=== PATIENT | male | born 1955 | race Caucasian/White ===

== ENCOUNTER 2021-01-29 10:28 | Emergency (ER) | payer MEDICARE, MEDICAID, SELFPAY ==
--- NOTE | ~2021-01-29 | CT_ITS ---
EXAMINATION: CT BRAIN AND CHEST X-RAY. CLINICAL INFORMATION: AMS. COMPARISON: Chest 10/24/2018. CT brain 05/17/2016 TECHNIQUE: 5 mm thin axial and reformatted 2 mm thin sagittal and coronal images of brain were obtained. DLP 618. Chest x-ray one view. FINDINGS: Brain: There is no acute intra-axial, extra-axial bleed, masses or midline shift. There is no acute infarction in evolution. There is no edema. The lateral ventricles are symmetrical in size and configuration without enlargement. There is diffuse periventricular hypodensity in both cerebral hemispheres suggestive of chronic small vessel microangiopathy. Bone windows reveal no calvarial abnormality. Bilateral paranasal sinuses and mastoid air cells are well-aerated. 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 Chest x-ray: The lungs are well-expanded and clear of acute process. The heart size and pulmonary vascularity is normal. No gross bony abnormality seen. CT/CT head/brain wo con IMPRESSION: No acute intracranial process seen. Moderate cerebral volume loss with chronic small vessel microangiopathy. There is no acute cardiopulmonary process.
[2021-01-29 10:39] VITALS: BP 130/79; PULSE 64; RESP 16; TEMP 36.7; O2SAT 95; BMI 19.0
--- NOTE | 2021-01-29 10:39 | ECG_ITS ---
Test Reason : ALTER MENTAL Blood Pressure : / mmHG Vent. Rate : 058 BPM Atrial Rate : 058 BPM P-R Int : 140 ms QRS Dur : 080 ms QT Int : 440 ms P-R-T Axes : 073 044 007 degrees QTc Int : 431 ms Sinus bradycardia Left ventricular hypertrophy Abnormal ECG When compared with ECG of 23-OCT-2018 23:56, Vent. rate has decreased BY 43 BPM T wave inversion no longer evident in Lateral leads Referred By: Marichuy Morales Electronically Signed By:Macho Andersen
--- NOTE | 2021-01-29 10:40 | ED_ITS ---
HPI - Altered Mental Status General Chief Complaint: Altered Mental Status Stated Complaint: ams, increased weakness, slurred speech Time Seen by Provider: 01/29/21 10:38 Source: patient and EMS Mode of arrival: EMS Limitations: other (dementia with cognitive impairment) History of Present Illness HPI narrative: 65 [facility] with dementia, CVA, hearing loss reportedly RN told EMS he might be more confused since last night and his speech seems slurred, no other history provided, EMS found the patient smiling in his room eating M+Ms, RN in ED who takes care of Isidoro states he is at his baseline and his speech is slurred at baseline MD complaint: other (?more confused, slurred speech) Onset (ago): day(s) (?last night) Timing confirmed by: caregiver Severity: similar to previous episodes Consistency of symptoms: unknown Context: other (hx of hearing loss, stroke, dementia, baseline slurred speech) Associated symptoms: denies other symptoms Related Data Allergies Allergy/AdvReac Type Severity Reaction Status Date / Time No Known Allergies Allergy Unverified 04/23/20 18:03 [No Known Allergies*] Review of Systems Review of Systems: ROS unable to be obtained due to cognitive impairment PMFSH Past Medical History Source: nursing notes reviewed Medical History CVA (cerebral vascular accident) Dementia Dysphagia Hearing loss Social History Social History (Updated 01/29/21 @ 10:49 by Marichuy Morales DO) Housing: [facility] Patient Tobacco Use Status: Tobacco use Unknown Advance Directives: Yes Advance Directives Information Provided: Yes Advance Directives on File: No Physical Exam Vital Signs: Vital Signs: Last Vital Signs Temp 98.0 F 01/29/21 10:39 Pulse 64 01/29/21 10:39 Resp 16 01/29/21 10:39 BP 130/79 01/29/21 10:39 Pulse Ox 95 01/29/21 10:39 Body Mass Index 19.0 Appearance: Alert. Follows commands, unable to answer orientation questions. No acute distress. Eyes: Pupils equal, round and reactive to light. ENT: Pharynx normal. Neck: Normal inspection. Neck supple. CVS: Normal heart rate and rhythm. Pulses normal. Respiratory: No respiratory distress. Breath sounds normal. Abdomen: Soft and non-tender. Skin: Skin warm and dry. Normal skin color. Normal skin turgor. Extremities: No lower extremity edema. No calf ttp Neuro: Follows command smiles, slurred speech and mumbles No motor deficit. No sensory deficit. Course Course Course Narrative: after discussion [facility] - slurred speech at baseline, he has a mild UTI, EKG no ischemia, no CP, trop no sig rise - will give ceftriaxone and DC back with ceftin MDM - Altered Mental Status MDM Narrative Medical decision making narrative: 65 [facility] with dementia, CVA, hearing loss reportedly RN told EMS he might be more confused since last night and his speech seems slurred, no other history provided, EMS found the patient smiling in his room eating M+Ms, RN in ED who takes care of Isidoro states he is at his baseline and his speech is slurred at baseline at this time will obtain labs, CXR, UA for infection, CT head for mass/ICH though RN present in our ED states Isidoro is at his baseline, will call [facility] for more information Lab Data Result diagrams: 01/29/21 11:04 01/29/21 11:41 Labs: Lab Results 01/29/21 01/29/21 01/29/21 Range/Units 10:35 10:38 11:04 WBC 7.4 (4.8-10.8) X10*3/uL RBC 3.87 L (4.60-5.80) X10*6/uL Hgb 12.4 L (14.0-18.0) g/dl Hct 38.2 L (42-52) % MCV 98.7 H (80-98) fL MCH 32.0 (27.0-33.0) pg MCHC 32.5 (31.0-36.0) g/dl RDW 12.9 (11.0-16.0) % Plt Count 260 (160-400) X10*3/uL MPV 9.9 (9.4-12.4) fL Immature Gran % (Auto) 0.3 (0.0-0.4) % Neut % (Auto) 51.3 (45-73) % Lymph % (Auto) 31.1 (20-40) % [place] % (Auto) 6.4 (2-11) % Eos % (Auto) 9.5 H (0-4) % Baso % (Auto) 1.4 (0-2) % Lymph # (Auto) 2.3 (1.2-4.9) X10*3/uL [place] # (Auto) 0.5 (0.1-1.2) X10*3/uL Eos # (Auto) 0.7 H (0.0-0.4) X10*3/uL Baso # (Auto) 0.1 (0.0-0.2) X10*3/uL Abs Immat Gran (auto) 0.02 (0.00-0.03) X10*3/uL Absolute Neuts (auto) 3.8 (2.0-8.3) X10*3/uL Absolute Nucleated RBC 0.000 (0.0-0.012) X10*3/uL Nucleated RBC % (auto) 0.0 (0.0-0.2) /100WBC Whole Blood PT 12.3 (11.1-13.5) sec Whole Blood INR 1.0 (0.9-1.1) VBG pH (7.32-7.43) VBG pCO2 mmHg VBG pO2 mmHg VBG HCO3 (22-26) mmol/L VBG O2 Saturation % VBG Base Excess mmol/L Sodium (135-145) mmol/L Potassium (3.3-5.1) mmol/L Chloride (96-108) mmol/L Carbon Dioxide (22-29) mmol/L Anion Gap (12-20) BUN (9-16) mg/dL Creatinine (0.5-1.4) mg/dL Estim Creat Clear Calc Estimated GFR POC Glucose 112 (60-115) mg/dL Random Glucose (60-115) mg/dL Calcium (8.4-10.2) mg/dL Magnesium (1.6-2.6) mg/dL Total Bilirubin (0.0-1.0) mg/dL Direct Bilirubin (0.0-0.5) mg/dL AST (5-37) U/L ALT (0-40) U/L Alkaline Phosphatase (39-117) U/L Ammonia (13-55) umol/L Troponin I High Sens (<3.5-35.0) ng/L Total Protein (6.5-8.0) g/dL Albumin (3.5-5.0) g/dL Lipase (8-78) U/L Urine Color Urine Appearance Urine pH (5.0-8.0) Ur Specific [place] (1.005-1.025) Urine Protein (NEG-TRACE) MG/DL Urine Glucose (UA) (NEG) MG/DL Urine Ketones (NEG) MG/DL Urine Blood (NEG) Urine Nitrite (NEG) Ur Leukocyte Esterase (NEG) Urine RBC (0) /HPF Urine WBC (0-4) /HPF Ur Squamous Epith Cells /LPF Urine Bacteria /LPF 01/29/21 01/29/21 01/29/21 Range/Units 11:04 11:13 11:41 WBC (4.8-10.8) X10*3/uL RBC (4.60-5.80) X10*6/uL Hgb (14.0-18.0) g/dl Hct (42-52) % MCV (80-98) fL MCH (27.0-33.0) pg MCHC (31.0-36.0) g/dl RDW (11.0-16.0) % Plt Count (160-400) X10*3/uL MPV (9.4-12.4) fL Immature Gran % (Auto) (0.0-0.4) % Neut % (Auto) (45-73) % Lymph % (Auto) (20-40) % [place] % (Auto) (2-11) % Eos % (Auto) (0-4) % Baso % (Auto) (0-2) % Lymph # (Auto) (1.2-4.9) X10*3/uL [place] # (Auto) (0.1-1.2) X10*3/uL Eos # (Auto) (0.0-0.4) X10*3/uL Baso # (Auto) (0.0-0.2) X10*3/uL Abs Immat Gran (auto) (0.00-0.03) X10*3/uL Absolute Neuts (auto) (2.0-8.3) X10*3/uL Absolute Nucleated RBC (0.0-0.012) X10*3/uL Nucleated RBC % (auto) (0.0-0.2) /100WBC Whole Blood PT (11.1-13.5) sec Whole Blood INR (0.9-1.1) VBG pH 7.39 (7.32-7.43) VBG pCO2 44 mmHg VBG pO2 56 mmHg VBG HCO3 27 H (22-26) mmol/L VBG O2 Saturation 83.0 % VBG Base Excess 2.2 mmol/L Sodium 144 (135-145) mmol/L Potassium 4.2 (3.3-5.1) mmol/L Chloride 109 H (96-108) mmol/L Carbon Dioxide 29 (22-29) mmol/L Anion Gap 10 L (12-20) BUN 12 (9-16) mg/dL Creatinine 0.62 (0.5-1.4) mg/dL Estim Creat Clear Calc 84.7 Estimated GFR > 60 POC Glucose (60-115) mg/dL Random Glucose 106 (60-115) mg/dL Calcium 9.2 (8.4-10.2) mg/dL Magnesium 2.0 (1.6-2.6) mg/dL Total Bilirubin 0.5 (0.0-1.0) mg/dL Direct Bilirubin 0.2 (0.0-0.5) mg/dL AST 22 (5-37) U/L ALT 16 (0-40) U/L Alkaline Phosphatase 106 (39-117) U/L Ammonia (13-55) umol/L Troponin I High Sens 13.6 (<3.5-35.0) ng/L Total Protein 6.2 L (6.5-8.0) g/dL Albumin 3.6 (3.5-5.0) g/dL Lipase 9 (8-78) U/L Urine Color Urine Appearance Urine pH (5.0-8.0) Ur Specific [place] (1.005-1.025) Urine Protein (NEG-TRACE) MG/DL Urine Glucose (UA) (NEG) MG/DL Urine Ketones (NEG) MG/DL Urine Blood (NEG) Urine Nitrite (NEG) Ur Leukocyte Esterase (NEG) Urine RBC (0) /HPF Urine WBC (0-4) /HPF Ur Squamous Epith Cells /LPF Urine Bacteria /LPF 01/29/21 01/29/21 Range/Units 11:41 11:56 WBC (4.8-10.8) X10*3/uL RBC (4.60-5.80) X10*6/uL Hgb (14.0-18.0) g/dl Hct (42-52) % MCV (80-98) fL MCH (27.0-33.0) pg MCHC (31.0-36.0) g/dl RDW (11.0-16.0) % Plt Count (160-400) X10*3/uL MPV (9.4-12.4) fL Immature Gran % (Auto) (0.0-0.4) % Neut % (Auto) (45-73) % Lymph % (Auto) (20-40) % [place] % (Auto) (2-11) % Eos % (Auto) (0-4) % Baso % (Auto) (0-2) % Lymph # (Auto) (1.2-4.9) X10*3/uL [place] # (Auto) (0.1-1.2) X10*3/uL Eos # (Auto) (0.0-0.4) X10*3/uL Baso # (Auto) (0.0-0.2) X10*3/uL Abs Immat Gran (auto) (0.00-0.03) X10*3/uL Absolute Neuts (auto) (2.0-8.3) X10*3/uL Absolute Nucleated RBC (0.0-0.012) X10*3/uL Nucleated RBC % (auto) (0.0-0.2) /100WBC Whole Blood PT (11.1-13.5) sec Whole Blood INR (0.9-1.1) VBG pH (7.32-7.43) VBG pCO2 mmHg VBG pO2 mmHg VBG HCO3 (22-26) mmol/L VBG O2 Saturation % VBG Base Excess mmol/L Sodium (135-145) mmol/L Potassium (3.3-5.1) mmol/L Chloride (96-108) mmol/L Carbon Dioxide (22-29) mmol/L Anion Gap (12-20) BUN (9-16) mg/dL Creatinine (0.5-1.4) mg/dL Estim Creat Clear Calc Estimated GFR POC Glucose (60-115) mg/dL Random Glucose (60-115) mg/dL Calcium (8.4-10.2) mg/dL Magnesium (1.6-2.6) mg/dL Total Bilirubin (0.0-1.0) mg/dL Direct Bilirubin (0.0-0.5) mg/dL AST (5-37) U/L ALT (0-40) U/L Alkaline Phosphatase (39-117) U/L Ammonia 54 (13-55) umol/L Troponin I High Sens (<3.5-35.0) ng/L Total Protein (6.5-8.0) g/dL Albumin (3.5-5.0) g/dL Lipase (8-78) U/L Urine Color YELLOW Urine Appearance HAZY Urine pH 6.0 (5.0-8.0) Ur Specific [place] 1.010 (1.005-1.025) Urine Protein NEG (NEG-TRACE) MG/DL Urine Glucose (UA) NEG (NEG) MG/DL Urine Ketones NEG (NEG) MG/DL Urine Blood NEG (NEG) Urine Nitrite NEG (NEG) Ur Leukocyte Esterase TRACE H (NEG) Urine RBC 0 (0) /HPF Urine WBC 1-4 (0-4) /HPF Ur Squamous Epith Cells NONE /LPF Urine Bacteria 3+ /LPF ECG Data ECG #1: Attestation: I personally reviewed and interpreted this ECG as follows: ECG interpretation date: 01/29/21 ECG interpretation time: 11:30 Interpretation: Rate: 58 Rhythm: sinus bradycardia [place]: normal LVH Normal P waves. Normal RACHELLE. Normal QRS complex. ST T wave : nonspecific, no MICHAEL qTC: normal prior studies: no acute ischemia The study has been interpreted contemporaneously by me. . Discharge Plan Discharge Clinical Impression: Acute UTI, Weakness Patient Disposition: Xfer SNF Instructions: Urinary Tract Infection in Men (ED), Weakness (ED) Additional Instructions: return to ED for any worsening symptoms or concerns CONTINUE CEFTIN 250MG BID FOR 6 MORE DAYS, GIVEN ROCEPHIN IN ED ON 01/29/21
[2021-01-29 10:46] LABS: Glucose, Whole Blood 112 mg/dL (60-115)
[2021-01-29 11:09] LABS: Prothrombin Time Whole Bld POC 12.3 sec (11.1-13.5)
[2021-01-29 11:16] LABS: MANUAL DIFF FLAG NO
[2021-01-29 11:20] LABS: VBG Base Excess 2.2 mmol/L; VBG HCO3 27 mmol/L (22-26); VBG pCO2 44 mmHg; VBG pH 7.39 (7.32-7.43); VBG pO2 56 mmHg
[2021-01-29 11:24] LABS: Venous Blood Gas Refer to POC result
[2021-01-29 11:28] LABS: Basophils Absolute Auto 0.1 X10*3/uL (0.0-0.2); Basophils Percent Auto 1.4 % (0-2); Eosinophils Absolute Auto 0.7 X10*3/uL (0.0-0.4); Eosinophils Percent Auto 9.5 % (0-4); Hematocrit 38.2 % (42-52); Hemoglobin 12.4 g/dl (14.0-18.0); Imm Gran Abs Auto 0.02 X10*3/uL (0.00-0.03); Imm Gran Pct Auto 0.3 % (0.0-0.4); Lymphocytes Absolute Auto 2.3 X10*3/uL (1.2-4.9); Lymphocytes Percent Auto 31.1 % (20-40); Mean Corpuscular HGB Conc 32.5 g/dl (31.0-36.0); Mean Corpuscular Volume 98.7 fL (80-98); Mean Platelet Volume 9.9 fL (9.4-12.4); Monocytes Absolute Auto 0.5 X10*3/uL (0.1-1.2); Monocytes Percent Auto 6.4 % (2-11); Neutrophils Absolute Auto 3.8 X10*3/uL (2.0-8.3); Neutrophils Percent Auto 51.3 % (45-73); Platelet Count 260 X10*3/uL (160-400); Red Blood Count 3.87 X10*6/uL (4.60-5.80); Red Cell Distribution Width 12.9 % (11.0-16.0); White Blood Count 7.4 X10*3/uL (4.8-10.8)
--- NOTE | 2021-01-29 11:29 | PC.NURSE ---
Pt alert, unable to answer oriented questions, follows commands. Per EMS RN at [facility] reports pt is more confused and speech slurred, however unsure of when this started. This junior underwriter is familiar with pt and his responses are slower than baseline. Pt is hard of hearing, his speech is also gargled. He is a everyday smoker. Pt cooperative with txs, No apparent distress, iv line established, labs drawn, results pending. Urine obtained via straight cath. Large reddened area noted on L hip while changing pt into [facility].
[2021-01-29 11:53] LABS: Troponin-I High Sensitivity 13.6 ng/L (<3.5-35.0)
[2021-01-29 12:03] LABS: Glucose Urine UA NEG (NEG); Leukocyte Esterase Urine TRACE (NEG); Nitrite Urine NEG (NEG); UACC Culture Trigger YES; Urine Blood NEG (NEG); Urine Ketones NEG (NEG); Urine Protein NEG (NEG-TRACE)
[2021-01-29 12:04] LABS: Appearance Urine HAZY; Color Urine YELLOW
[2021-01-29 12:15] LABS: Bacteria Urine 3+ /LPF; RBC Urine 0 /HPF (0)
[2021-01-29 12:25] LABS: Alanine Aminotransferase 16 U/L (0-40); Albumin Level 3.6 g/dL (3.5-5.0); Alkaline Phosphatase 106 U/L (39-117); Aspartate Amino Transferase 22 U/L (5-37); Bilirubin Direct 0.2 mg/dL (0.0-0.5); Bilirubin Total 0.5 mg/dL (0.0-1.0); Blood Urea Nitrogen 12 mg/dL (9-16); Calcium 9.2 mg/dL (8.4-10.2); Creatinine Clr Calc Pharmacy 84.7; Estimated Glomerular Filt Rate > 60; Glucose Random 106 mg/dL (60-115); Lipase 9 U/L (8-78); Total Protein 6.2 g/dL (6.5-8.0)
[2021-01-29 12:27] LABS: Ammonia 54 umol/L (13-55)
[2021-01-29 12:33] LABS: Anion Gap 10 (12-20); Carbon Dioxide 29 mmol/L (22-29); Chloride 109 mmol/L (96-108); Potassium 4.2 mmol/L (3.3-5.1); Sodium 144 mmol/L (135-145)
[2021-01-29 12:43] LABS: TSH reflex Free T4 1.33 uIU/mL (0.32-4.0)
[2021-01-29] MEDS: cefTRIAXone sodium 1 GM in 0.9 % Sodium Chloride 50 ML IV (13:20)
[2021-01-29 13:34] VITALS: BP 165/58; PULSE 62; RESP 12; O2SAT 98
--- NOTE | 2021-01-29 13:36 | PC.NURSE ---
Pt resting quietly, no apparent distress. Plan of care is to d/c pt back to [facility]. This designer/writer will contact the facility to give report.
--- NOTE | 2021-01-29 14:10 | PC.NURSE ---
report given to Manjula Wells, Retail Attendant at [facility].
== END 2021-01-29 14:11 | disposition skilled nursing facility (03) ==
PROVIDERS: Emergency Provider Emergency Medicine
DX: N39.0 Urinary tract infection, site not specified (principal); R53.1 Weakness; F03.90 Unspecified dementia, unspecified severity, without behavioral disturbance, psychotic disturbance, mood disturbance, and anxiety; Z86.73 Personal history of transient ischemic attack (TIA), and cerebral infarction without residual deficits
CPT/HCPCS: 36415; 70450; 71045; 80048; 80076; 81001; 81003; 82140; 82947; 83690; 83735; 84443; 84484; 85025; 85610; 87086; 87088; 87186; 93005; 96365; 99284; 99285; J0696

== ENCOUNTER → 2022-02-21 14:47 | Outpatient (BNVA) | payer MEDICARE, MEDICAID, SELFPAY | PROVIDERS: PCP Hospitalist | DX: R33.9 Retention of urine, unspecified (principal) | CPT/HCPCS: 51798; 99202 ==

== ENCOUNTER 2022-05-12 00:49 | Emergency (ER) | payer MEDICARE, MEDICAID, SELFPAY ==
--- NOTE | ~2022-05-12 | CT_ITS ---
EXAMINATION: NONCONTRAST HEAD CT NONCONTRAST CERVICAL SPINE CT INDICATION INFORMATION: Fall with pain COMPARISON: 01/29/2021 TECHNIQUE: Separate noncontrast CT examinations of the head and cervical spine were performed. Coronal head CT images and coronal and sagittal cervical spine images were created at the technologist workstation. DLP: 959 mGy-cm DOSE LOWERING TECHNIQUES: This CT examination was performed using dose optimization techniques as appropriate, variously including the following: - Automated exposure control - Adjustment of mA and/or kV according to patient size (this includes techniques or standardized protocols for targeted exams were dose is matched to indication/reason for exam; i.e. extremities or head) - Use of iterative reconstruction technique FINDINGS: Head: Limited assessment due to motion artifact. There is a round region of acute hemorrhage in the left thalamus measuring 1.3 cm in diameter with minimal surrounding edema and mass effect. There is no evidence of acute territorial infarction. No abnormal mass-effect or midline shift is seen. Richards to white matter differentiation is well preserved. No extra-axial fluid collections are identified. The ventricles are normal in size. There is moderate periventricular white matter hypoattenuation consistent with chronic small vessel ischemic disease. Moderate volume loss is noted. The osseous structures and soft tissues are normal. Opacified left maxillary sinus. Cervical spine: Significantly limited assessment due to motion artifact. There is degenerative change at the atlantodens articulation. There is anatomic alignment of the vertebral bodies and posterior elements. Vertebral body heights are maintained. There is disc space narrowing throughout the cervical spine with associated endplate osteophytes. Moderate right-sided facet arthropathy. No evidence of acute fracture. No prevertebral soft tissue swelling. Visualized portions of the lung apices demonstrate emphysema. The thyroid gland is not adequately assessed due to motion artifact. CT/CT cervical spine wo IV con IMPRESSION: 1. Acute hemorrhage in the left thalamus measuring 1.3 cm, with mild associated edema. 2. Significantly limited assessment of the cervical spine due to motion artifact. Degenerative changes without definite acute findings. This critical result was discussed with Dr. Foster on 05/12/2022 4:29 AM, and it was ascertained that the content and urgency of the report was understood at the time of direct communication.
--- NOTE | 2022-05-12 01:14 | ECG_ITS ---
Test Reason : TACHYCARDIA Blood Pressure : / mmHG Vent. Rate : 133 BPM Atrial Rate : 000 BPM P-R Int : 000 ms QRS Dur : 092 ms QT Int : 324 ms P-R-T Axes : 000 057 122 degrees QTc Int : 482 ms Atrial fibrillation with rapid ventricular response Minimal voltage criteria for LVH, may be normal variant ( Sokolow-Lopes ) Nonspecific ST and T wave abnormality Abnormal ECG When compared with ECG of 29-JAN-2021 11:28, Atrial fibrillation has replaced Sinus rhythm Vent. rate has increased BY [address] now depressed in Lateral leads Nonspecific T wave abnormality no longer evident in Inferior leads Referred By: Andrew Ashby Electronically Signed By:VIOLA TELLO
[2022-05-12 01:25] LABS: Basophils Absolute Auto 0.1 X10*3/uL (0.0-0.2); Basophils Percent Auto 0.7 % (0-2); Eosinophils Absolute Auto 0.2 X10*3/uL (0.0-0.4); Eosinophils Percent Auto 1.4 % (0-4); Hematocrit 34.6 % (42.0-52.0); Hemoglobin 11.8 g/dl (14.0-18.0); Imm Gran Abs Auto 0.04 X10*3/uL (0.00-0.03); Imm Gran Pct Auto 0.3 % (0.0-0.4); Lymphocytes Absolute Auto 2.8 X10*3/uL (1.2-4.9); Lymphocytes Percent Auto 20.8 % (20-40); MANUAL DIFF FLAG NO; Mean Corpuscular HGB Conc 34.1 g/dl (31.0-36.0); Mean Corpuscular Hemoglobin 32.1 pg (27.0-33.0); Mean Platelet Volume 9.7 fL (9.4-12.4); Monocytes Absolute Auto 0.8 X10*3/uL (0.1-1.2); Monocytes Percent Auto 6.2 % (2-11); Neutrophils Absolute Auto 9.4 x10*3/uL (2.0-8.3); Neutrophils Percent Auto 70.6 % (45-73); Platelet Count 421 X10*3/uL (160-400); Red Blood Count 3.68 X10*6/uL (4.60-5.80); Red Cell Distribution Width 11.9 % (11.0-16.0); White Blood Count 13.3 X10*3/uL (4.8-10.8)
[2022-05-12] MEDS: 0.9 % Sodium Chloride 1,000 ML 999 ML IV ×2 (01:27→01:49)
--- NOTE | 2022-05-12 01:28 | ED.AMS ---
HPI - Altered Mental Status General Chief Complaint: Fall Stated Complaint: Fever Time Seen by Provider: 05/12/22 01:11 Source: EMS and RN notes reviewed Mode of arrival: EMS Limitations: altered mental status History of Present Illness HPI narrative: Patient is 66 years old with dementia, CVA, hearing loss came from halfway for increased confusion noted to have fever of 101.3 was found on the floor lying to the left side according to staff patient did not hit his head but was a unwitnessed fall. vitals checked for blood pressure 158/78 pulse rate 126 temperature 101.3 degrees pulse ox of 89% on arrival patient was very agitated tachycardic and heart rate around 200 irregularly irregular MD complaint: altered mental status and confusion Timing confirmed by: caregiver Severity: moderate Context: history of similar presentation and recent fever Related Data Home Medications Medication Instructions Recorded Confirmed aripiprazole 2 mg tablet 2 mg PO DAILY 02/21/22 carbamazepine 400 mg 400 mg PO BID 02/21/22 tablet,extended release,12 hr levothyroxine 75 mcg tablet 75 mcg PO DAILY 02/21/22 lisinopril 5 mg tablet 5 mg PO DAILY 02/21/22 metoprolol succinate 25 mg 25 mg PO BID 02/21/22 tablet,extended release 24 hr mirtazapine 7.5 mg tablet 7.5 mg PO BEDTIME 02/21/22 Previous Rx's Medication Instructions Recorded tamsulosin 0.4 mg capsule 0.4 mg PO BEDTIME #90 caps 02/21/22 Allergies Allergy/AdvReac Type Severity Reaction Status Date / Time No Known Allergies Allergy Verified 02/21/22 14:52 [No Known Allergies*] Review of Systems Review of Systems: Yes Unobtainable due to mental status PMFSH Past Medical History Medical History CVA (cerebral vascular accident) Dementia Dysphagia Hearing loss Retention of urine Social History Social History Housing: Long-Term Patient Tobacco Use Status: Tobacco use Unknown Advance Directives: No Physical Exam ED Vital Signs: Vital Signs - 24 hr 05/12/22 01:39 05/12/22 02:24 05/12/22 03:14 Temperature 102.4 F H 100.7 F H Pulse Rate 214 H 112 H 121 H Respiratory Rate 36 H 27 H 24 H Blood Pressure 117/91 H 100/64 108/58 L Pulse Oximetry 93 91 L 94 Oxygen Delivery Method Room Air Nasal Cannula Nasal Cannula Oxygen Flow Rate 4 4 05/12/22 03:46 05/12/22 04:17 Temperature 100.7 F H Pulse Rate 92 79 Respiratory Rate 20 19 Blood Pressure 114/78 106/66 Pulse Oximetry 97 Oxygen Delivery Method Nasal Cannula Oxygen Flow Rate 4 BMI result Body Mass Index 6.1 Appearance: Lethargic combative moving extremities all over Eyes: PERRLA, No Nystagmus ENT: Pharynx normal. Oral Mucosa moist Neck: Normal inspection. Neck supple. CVS: Tachycardic heart rate in 200 range irregular irregular Pulses normal. Respiratory: No respiratory distress. Equal air entry bilateral, no wheezing/rales/rhonchi Abdomen: Soft and nontender. Bowel sounds are present, no mass palpable, no CVA tenderness Skin: Skin warm and dry. Normal skin color. Normal skin turgor. Extremities: No lower extremity edema. No calf swelling Neuro: Oriented X 1. moving all 4 ext MDM - Altered Mental Status MDM Narrative Medical decision making narrative: 4 am Patient with sepsis from UTI, status post fall with left in the cerebral bleed in left thalamic area 1.5 cm with slight edema no mass effect, with atrial fibrillation with fast ventricular rate not on anticoagulation will transfer the patient to [facility] for further management. Patient received IV fluids and IV Rocephin started on Cardizem drip blood pressure 114/78 pulse rate 92 temperature 100.7 degrees case discussed with Dr. Kiko Staley trauma surgeon at [facility] accepted the patient the ED patient received IV fluids more than 30 cc/kilogram and IV antibiotics focused exam for sepsis was done at 04:00 Medical Records Attestation: I reviewed the patient's medical records. Lab Data Attestation: I reviewed the patient's lab results. Result diagrams: 05/12/22 01:18 05/12/22 03:09 Labs: Lab Results 05/12/22 05/12/22 05/12/22 Range/Units 01:18 01:18 01:18 WBC 13.3 H (4.8-10.8) X10*3/uL RBC 3.68 L (4.60-5.80) X10*6/uL Hgb 11.8 L (14.0-18.0) g/dl Hct 34.6 L (42.0-52.0) % MCV 94.0 (80.0-98.0) fL MCH 32.1 (27.0-33.0) pg MCHC 34.1 (31.0-36.0) g/dl RDW 11.9 (11.0-16.0) % Plt Count 421 H (160-400) X10*3/uL MPV 9.7 (9.4-12.4) fL Immature Gran % (Auto) 0.3 (0.0-0.4) % Neut % (Auto) 70.6 (45-73) % Lymph % (Auto) 20.8 (20-40) % [place] % (Auto) 6.2 (2-11) % Eos % (Auto) 1.4 (0-4) % Baso % (Auto) 0.7 (0-2) % Lymph # (Auto) 2.8 (1.2-4.9) X10*3/uL [place] # (Auto) 0.8 (0.1-1.2) X10*3/uL Eos # (Auto) 0.2 (0.0-0.4) X10*3/uL Baso # (Auto) 0.1 (0.0-0.2) X10*3/uL Abs Immat Gran (auto) 0.04 H (0.00-0.03) X10*3/uL Absolute Neuts (auto) 9.4 H (2.0-8.3) x10*3/uL Absolute Nucleated RBC 0.000 (0.0-0.012) X10*3/uL Nucleated RBC % (auto) 0.0 (0.0-0.2) /100WBC Sodium (135-145) mmol/L Potassium (3.3-5.1) mmol/L Chloride (96-108) mmol/L Carbon Dioxide (22-29) mmol/L Anion Gap (12-20) BUN (9-16) mg/dL Creatinine (0.5-1.4) mg/dL Estim Creat Clear Calc Estimated GFR Random Glucose (60-115) mg/dL Lactic Acid 4.5 H* (0.5-2.0) mmol/L Calcium (8.4-10.2) mg/dL Troponin I High Sens 17.1 (<3.5-35.0) ng/L Lipase (8-78) U/L Urine Color Urine Appearance Urine pH (5.0-9.0) Ur Specific [place] (1.005-1.025) Urine Protein (Neg-Trace) mg/dL Urine Glucose (UA) (Negative) mg/dL Urine Ketones (Negative) mg/dL Urine Blood (Negative) Urine Nitrite (Negative) Ur Leukocyte Esterase (Negative) Urine RBC (0-2) /HPF Urine WBC (0-5) /HPF Urine WBC Clumps Ur Squamous Epith Cells (0-2) /HPF Ur Renal Epithelial Cell Urine Bacteria (None Seen) Hyaline Casts (0-2) /LPF COVID-19 (ANNETTE) (Negative) COVID-19 Clin Com 05/12/22 05/12/22 05/12/22 Range/Units 02:27 03:09 03:09 WBC (4.8-10.8) X10*3/uL RBC (4.60-5.80) X10*6/uL Hgb (14.0-18.0) g/dl Hct (42.0-52.0) % MCV (80.0-98.0) fL MCH (27.0-33.0) pg MCHC (31.0-36.0) g/dl RDW (11.0-16.0) % Plt Count (160-400) X10*3/uL MPV (9.4-12.4) fL Immature Gran % (Auto) (0.0-0.4) % Neut % (Auto) (45-73) % Lymph % (Auto) (20-40) % [place] % (Auto) (2-11) % Eos % (Auto) (0-4) % Baso % (Auto) (0-2) % Lymph # (Auto) (1.2-4.9) X10*3/uL [place] # (Auto) (0.1-1.2) X10*3/uL Eos # (Auto) (0.0-0.4) X10*3/uL Baso # (Auto) (0.0-0.2) X10*3/uL Abs Immat Gran (auto) (0.00-0.03) X10*3/uL Absolute Neuts (auto) (2.0-8.3) x10*3/uL Absolute Nucleated RBC (0.0-0.012) X10*3/uL Nucleated RBC % (auto) (0.0-0.2) /100WBC Sodium 138 (135-145) mmol/L Potassium 3.2 L D (3.3-5.1) mmol/L Chloride 105 (96-108) mmol/L Carbon Dioxide 24 (22-29) mmol/L Anion Gap 12 (12-20) BUN 19 H (9-16) mg/dL Creatinine 0.76 (0.5-1.4) mg/dL Estim Creat Clear Calc 60.9 Estimated GFR > 60 Random Glucose 175 H D (60-115) mg/dL Lactic Acid (0.5-2.0) mmol/L Calcium 8.2 L D (8.4-10.2) mg/dL Troponin I High Sens (<3.5-35.0) ng/L Lipase < 4 L (8-78) U/L Urine Color Yellow Urine Appearance Cloudy Urine pH 6.0 (5.0-9.0) Ur Specific [place] 1.025 (1.005-1.025) Urine Protein 100 (2+) H (Neg-Trace) mg/dL Urine Glucose (UA) Negative (Negative) mg/dL Urine Ketones Trace (Negative) mg/dL Urine Blood Large (3+) H (Negative) Urine Nitrite Positive H (Negative) Ur Leukocyte Esterase Trace H (Negative) Urine RBC 6-10 H (0-2) /HPF Urine WBC 6-10 H (0-5) /HPF Urine WBC Clumps Present Ur Squamous Epith Cells 0-2 (0-2) /HPF Ur Renal Epithelial Cell Present Urine Bacteria 3+ (None Seen) Hyaline Casts 0-2 (0-2) /LPF COVID-19 (ANNETTE) Negative (Negative) COVID-19 Clin Com See Note Imaging Data CT scan - head: Attestation: I personally reviewed and interpreted this imaging study as follows: Radiologist's impression: [address] [address] [address] Scan Report Signed Patient: Isidoro Sidhu MR#: [id number] : 1955 Acct:[id number] Age/Sex: 66 / M ADM Date: 05/12/22 Loc: HO.ED Attending Dr: Ordering Physician: Andrew Ashby MD Date of Service: 05/12/22 Procedure(s): CT cervical spine wo IV con Accession Number(s): [id number] cc: Andrew Ashby MD~ EXAMINATION: NONCONTRAST HEAD CT NONCONTRAST CERVICAL SPINE CT INDICATION INFORMATION: Fall with pain COMPARISON: 01/29/2021 TECHNIQUE: Separate noncontrast CT examinations of the head and cervical spine were performed. Coronal head CT images and coronal and sagittal cervical spine images were created at the technologist workstation. DLP: 959 mGy-cm DOSE LOWERING TECHNIQUES: This CT examination was performed using dose optimization techniques as appropriate, variously including the following: ?- Automated exposure control ?- Adjustment of mA and/or kV according to patient size (this includes techniques or standardized protocols for targeted exams were dose is matched to indication/reason for exam; i.e. extremities or head) ?- Use of iterative reconstruction technique FINDINGS: Head: Limited assessment due to motion artifact. There is a round region of acute hemorrhage in the left thalamus measuring 1.3 cm in diameter with minimal surrounding edema and mass effect. There is no evidence of acute territorial infarction. No abnormal mass-effect or midline shift is seen. Richards to white matter differentiation is well preserved. No extra-axial fluid collections are identified. The ventricles are normal in size. There is moderate periventricular white matter hypoattenuation consistent with chronic small vessel ischemic disease. Moderate volume loss is noted. The osseous structures and soft tissues are normal. Opacified left maxillary sinus. Cervical spine: Significantly limited assessment due to motion artifact. There is degenerative change at the atlantodens articulation. There is anatomic alignment of the vertebral bodies and posterior elements. Vertebral body heights are maintained. There is disc space narrowing throughout the cervical spine with associated endplate osteophytes. Moderate right-sided facet arthropathy. No evidence of acute fracture. No prevertebral soft tissue swelling. Visualized portions of the lung apices demonstrate emphysema. The thyroid gland is not adequately assessed due to motion artifact. CT/CT cervical spine wo IV con IMPRESSION: 1.? Acute hemorrhage in the left thalamus measuring 1.3 cm, with mild associated edema. 2.? Significantly limited assessment of the cervical spine due to motion artifact. Degenerative changes without definite acute findings. ? This critical result was discussed with Dr. Foster on 05/12/2022 4:29 AM, and it was ascertained that the content and urgency of the report was understood at the time of direct communication. Dictated By: Yoel Slater MD Signed By: <Electronically signed by Yoel Slater MD in OV> 05/12/22 0430 ECG Data ECG #1: Attestation: I personally reviewed and interpreted this ECG as follows: Interpretation: Atrial fibrillation with rapid ventricular response rate 133 beats per minute LVH nonspecific ST wave changes no acute ST elevation Critical Care Time Critical Care Time Critical Care Time: Yes Total Critical Care Time: 65 Attestation: I spent 65 minutes of critical care, with interventions, assessments, speaking to patient, consultants, and family. Discharge Plan Discharge Clinical Impression: Acute alteration in mental status, Atrial fibrillation with rapid ventricular response, UTI (urinary tract infection) Patient Disposition: er Acute [facility] Transfer Details: To [facility] Trauma Dr Staley Prescriptions: No Action tamsulosin 0.4 mg capsule 0.4 mg PO BEDTIME Qty: 90 0RF aripiprazole 2 mg tablet 2 mg PO DAILY mirtazapine 7.5 mg tablet 7.5 mg PO BEDTIME lisinopril 5 mg tablet 5 mg PO DAILY carbamazepine 400 mg tablet extended release 12 hr 400 mg PO BID levothyroxine 75 mcg tablet 75 mcg PO DAILY metoprolol succinate 25 mg tablet extended release 24 hr 25 mg PO BID Interventions: Acute Care Transfer Worksheet (ED) Last Done: 05/12/22 04:40 Discharge Date/Time: 05/12/22 04:40
[2022-05-12] MEDS: Midazolam HCl/PF 2 MG/2 ML VIAL 1 MG IVPUSH (01:29)
[2022-05-12] MEDS: cefTRIAXone sodium 1 GM in 0.9 % Sodium Chloride 50 ML IV (01:30)
[2022-05-12 01:32] VITALS: BP 180/80; PULSE 170; O2SAT 94
[2022-05-12 01:39] VITALS: BP 117/91; PULSE 214; RESP 36; TEMP 39.1; O2SAT 93
[2022-05-12 01:39] LABS: Lactic Acid 4.5 mmol/L (0.5-2.0)
[2022-05-12] MEDS: Metoprolol Tartrate 5 MG/5 ML VIAL IVPUSH (01:43)
[2022-05-12 01:44] LABS: Troponin-I High Sensitivity 17.1 ng/L (<3.5-35.0)
[2022-05-12] MEDS: Acetaminophen Supp 650 MG SUPP.RECT PR (01:52)
[2022-05-12] MEDS: dilTIAZem HCL 50 MG/10 ML VIAL 10 MG IVPUSH (02:20)
[2022-05-12 02:24] VITALS: BP 100/64; PULSE 112; RESP 27; O2SAT 91
[2022-05-12 02:36] LABS: Appearance Urine Cloudy; Color Urine Yellow; Glucose Urine UA Negative (Negative); Leukocyte Esterase Urine Trace (Negative); Nitrite Urine Positive (Negative); Specific Gravity - Urine 1.025 (1.005-1.025); UMIC TRIGGER UACC YES; Urine Blood Large (3+) (Negative); Urine Ketones Trace mg/dL (Negative); Urine Protein 100 (2+) mg/dL (Neg-Trace)
[2022-05-12 02:38] LABS: Bacteria Urine 3+ (None Seen); Hyaline Casts Urine 0-2 /LPF (0-2); Renal Epithelial Cells Urine Present; Squamous Epithelial Cell Urine 0-2 /HPF (0-2); UACC Culture Trigger YES; WBC Clumps Urine Present
[2022-05-12 03:14] VITALS: BP 108/58; PULSE 121; RESP 24; TEMP 38.2; O2SAT 94
[2022-05-12 03:21] LABS: Reflex Lactate? Lactic Acid Added
[2022-05-12 03:30] LABS: COVID-19 Test Negative (Negative); IDNOW Serial# 16C4AD1C
[2022-05-12 03:46] VITALS: BP 114/78; PULSE 92; RESP 20; O2SAT 97
[2022-05-12 03:52] LABS: Anion Gap 12 (12-20); Blood Urea Nitrogen 19 mg/dL (9-16); Calcium 8.2 mg/dL (8.4-10.2); Carbon Dioxide 24 mmol/L (22-29); Chloride 105 mmol/L (96-108); Creatinine Clr Calc Pharmacy 60.9; Estimated Glomerular Filt Rate > 60; Glucose Random 175 mg/dL (60-115); Lipase < 4 U/L (8-78); Potassium 3.2 mmol/L (3.3-5.1); Sodium 138 mmol/L (135-145)
[2022-05-12 04:17] VITALS: BP 106/66; PULSE 79; RESP 19; TEMP 38.2
--- NOTE | 2022-05-12 04:18 | PC.NURSE ---
Addendum entered by Triny Chirstianson 05/12/22 04:26: Nurse to Nurse report . Original Note: Called [facility]'s Transfer Line @0356 per .At 0406 accepted patient [facility] ER to ER.At 0408 Sonny called for a stat ALS transfer to [facility] ER per .ETA 15mins.Rn aware
--- NOTE | 2022-05-12 04:18 | PC.NURSE ---
pt temp has improved to 100.7 rectal, hr 77. sat 99% on 4l nc. bp 106/66. pt is sleeping arrousable.
--- NOTE | 2022-05-12 04:19 | PC.NURSE ---
Called facility who reported pt was seen at 11pm well during their rounds, was found on the floor at about 12ish, pt present here non-verbal, confused, unable to ambulate. [facility] staff reports pt is independent usually and verbal. Mutiple call made to attempt to get Molst and facesheet from faculty.
--- NOTE | 2022-05-12 04:25 | PC.NURSE ---
EMS arrived at 0423 to transfer patient.
--- NOTE | 2022-05-13 12:10 | MHC.STROKE ---
REVIEWED MEDICAL RECORD PATIENTS LKW WAS APPROX. 05/11/22 AT 2300. ARRIVED 0049, ABNORMAL VITALS, ELEVATED TEMP. AFIB AND NOT ANTICOAGULATED. CT DONE AT 0315 + THALAMIC BLEED. DOOR TO CT MEASURE MISSED, ARRIVED WITHIN 109 MINUTES OF LKW. DOOR-TO CT = 147 MIN. ? TRAUMATIC ICH DUE TO FALL.
== END 2022-05-12 04:40 | disposition short-term general hospital (02) ==
PROVIDERS: Emergency Provider Internal Medicine
DX: S06.35AA Traumatic hemorrhage of left cerebrum with loss of consciousness status unknown, initial encounter (principal); W19.XXXA Unspecified fall, initial encounter; A41.1 Sepsis due to other specified staphylococcus; I48.20 Chronic atrial fibrillation, unspecified; N39.0 Urinary tract infection, site not specified; B96.20 Unspecified Escherichia coli [E. coli] as the cause of diseases classified elsewhere; F03.911 Unspecified dementia, unspecified severity, with agitation; R00.0 Tachycardia, unspecified; Z20.822 Contact with and (suspected) exposure to COVID-19; Z86.73 Personal history of transient ischemic attack (TIA), and cerebral infarction without residual deficits; Y93.9 Activity, unspecified; Y92.122 Bedroom in nursing home as the place of occurrence of the external cause; Y99.9 Unspecified external cause status
CPT/HCPCS: 36415; 70450; 72125; 80048; 81001; 83605; 83690; 84484; 85025; 87040; 87086; 87088; 87147; 87186; 87205; 87635; 93005; 96361; 96374; 96375; 99285; J0696; J2250